=== PATIENT | female | born 1955 | race Caucasian/White ===

== ENCOUNTER 2017-01-30 10:23 | Emergency (ER) | payer BC ==
[2017-01-30] MEDS ORDERED: CLINDAMYCIN 150 MG CAP PO ONE (11:30)
--- NOTE | 2017-01-30 11:31 | Emergency Department Record ---
History of Present Illness - General Chief complaint: Lower Extremity Pain Stated complaint: L LEG POSS INFECTION Time Seen by Provider: 01/30/17 10:51 Source: Patient Mode of Arrival: Ambulatory Limitations: No limitations - History of Present Illness Initial comments: The patient is here due to developing R leg redness, itching and a rash for the last 4 days. The patient has a hx of having a complication from a previous R leg fracture and had a 2nd surgery last summer. She just went back to work 4 days ago and since has developed these issues. She denies any calf pain, thigh pain, fever, chills, or trauma. She also denies any new skin products or new medicines. MD Complaint: Extremity pain Onset/Timin -: Days(s) Location: Right, Lower Leg Improves with: Nothing Worsens with: Nothing Associated Symptoms: Other - Related Data Home Medications Medication Instructions Recorded Confirmed Last Taken Acetaminophen [Tylenol 500Mg Tab] 500 mg PO Q6H 01/30/17 01/30/17 01/30/17 Hydrocodone/Acetaminophen [[place] 1 each PO Q6H 01/30/17 01/30/17 01/30/17 5-325 Tablet] Lisinopril 10 mg PO DAILY 01/30/17 01/30/17 01/30/17 Naproxen Sodium [Aleve] 220 mg PO ASDIR 01/30/17 01/30/17 01/29/17 Propranolol HCl 20 mg PO DAILY 01/30/17 01/30/17 01/30/17 Sumatriptan Succinate [Imitrex] 25 mg PO ASDIR 01/30/17 01/30/17 Unknown Previous Rx's Medication Instructions Recorded Clindamycin HCl [Cleocin HCl] 300 mg PO QID #28 capsule 01/30/17 Triamcinolone Acet Cream [Kenalog 1 apply TP BID 7 Days #1 tube 01/30/17 Cream] Allergies Allergy/AdvReac Type Severity Reaction Status Date / Time No Known Drug Allergies Allergy Verified 01/30/17 10:40 Travel Screening - Travel/Exposure Within Last 30 Days Have you traveled within the last 30 days?: No - Travel/Exposure Within Last Year Have you traveled outside the [place] in the last year?: No - Additonal Travel Details Have you been exposed to anyone with a communicable illness?: No - Travel Symptoms Symptom Screening: None Review of Systems Constitutional: Denies: Chills, Fever Eyes: Denies: Eye discharge ENT: Denies: Congestion Respiratory: Denies: Cough, Dyspnea Past Medical History - SOCIAL HISTORY Smoking Status: Current every day smoker Alcohol Use: Occasional Drug Use: None - RESPIRATORY Hx Respiratory Disorders: No - CARDIOVASCULAR Hx Cardio Disorders: Yes Hx Hypertension: Yes - NEURO Hx Neuro Disorders: No - GI Hx GI Disorders: No - Hx Genitourinary Disorders: No - ENDOCRINE Hx Endocrine Disorders: No - MUSCULOSKELETAL Hx Musculoskeletal Disorders: Yes Comment:: scoliosis, L3 L5 buldged disk - PSYCH Hx Psych Problems: Yes Hx Depression: Yes (resolved) - HEMATOLOGY/ONCOLOGY Hx Hematology/Oncology Disorders: No Family Medical History Any Significant Family History?: No Physical Exam - General General Appearance: Alert, Oriented x3, Cooperative, No acute distress - Head Head exam: Atraumatic, Normocephalic, Normal inspection - Eye Eye exam: Normal appearance, PERRL - Extremities Extremities exam: Full ROM, Normal capillary refill, Tenderness (There is mild tenderness over the medial distal R lower leg with scattered papular erythematous lesions that are very pruritic. It appears to be a possible staph vs allergic skin reaction.). negative: Normal inspection, Calf tenderness, Joint swelling, Pedal edema Image of Full Body: 1 - Area of involvement of the rash. Course Vital Signs 01/30/17 10:27 Temperature 97.6 F Pulse Rate 70 Respiratory 16 Rate Blood Pressure 133/95 Pulse Ox 96 - Reevaluation(s) Reevaluation #1: I explained to the patient that it appears that she may be having an allergic skin reaction or possibly a skin infection. Due to the nature of the previous leg problems we will treat the patient with an oral abx and topical steroid cream. 01/30/17 11:36 Disposition Disposition: Discharge Clinical Impression: Dermatitis Disposition: Home, Self-Care Condition: (2) Stable Instructions: Dermatitis (ED) Additional Instructions: Please take the Clindamycin and Triamcinolone as directed and see Dr. Mcnair tomorrow as planned. Prescriptions: Clindamycin HCl [Cleocin HCl] 300 mg PO QID #28 capsule Triamcinolone Acet Cream [Kenalog Cream] 1 apply TP BID 7 Days #1 tube Forms: Patient Portal Access Time of Disposition: 11:40 Quality - Quality Measures Quality Measures: N/A - Blood Pressure Screening View Details: Yes Does Patient Have Any of the Following: No Blood Pressure Classification: Normal BP Reading Systolic Measurement: 110 Diastolic Measurement: 74 Screening for High Blood Pressure: < Normal BP, F/U Not Required > [G8783]
== END 2017-01-30 11:58 | disposition home or self-care (01) ==
LOC: ER 10:23
DX: L30.9 Dermatitis, unspecified (principal)
CPT/HCPCS: 99282

== ENCOUNTER 2017-02-11 11:59 | Emergency (ER) | payer BC ==
[2017-02-11] MEDS ORDERED: METHYLPREDNISOLONE PF 125MG/VIAL IM ONE (12:45)
[2017-02-11] MEDS ORDERED: DIPHENHYDRAMINE HCL 25 MG CAPSULE PO ONE (12:45)
--- NOTE | 2017-02-11 13:09 | Emergency Department Record ---
History of Present Illness - General Chief complaint: Rash Stated complaint: RASH Time Seen by Provider: 02/11/17 12:34 Source: Patient Mode of Arrival: Ambulatory Limitations: No limitations - History of Present Illness Initial comments: pt broke out in an itchy rash after finishing clindamycin. she denies any other new exposures MD complaint: Rash Onset/Timin -: Days(s) Location: Generalized, Head, Neck, Back, LUE, RUE Severity: Moderate Severity scale (1-10): 2 Consistency: Constant Improves with: None Associated symptoms: Itching - Related Data Previous Rx's Medication Instructions Recorded Clindamycin HCl [Cleocin HCl] 300 mg PO QID #28 capsule 01/30/17 Triamcinolone Acet Cream [Kenalog 1 apply TP BID 7 Days #1 tube 01/30/17 Cream] Methylprednisolone [Medrol Dose 4 mg PO ASDIR #1 tab.ds.pk 02/11/17 Pack] Allergies Allergy/AdvReac Type Severity Reaction Status Date / Time No Known Drug Allergies Allergy Verified 01/30/17 10:40 Travel Screening - Travel/Exposure Within Last 30 Days Have you traveled within the last 30 days?: No - Travel/Exposure Within Last Year Have you traveled outside the [place] in the last year?: No - Additonal Travel Details Have you been exposed to anyone with a communicable illness?: No - Travel Symptoms Symptom Screening: None Review of Systems Reviewed: No additional complaints except as noted below Constitutional: Reports: As per HPI. Denies: Chills, Fever, Malaise, Night sweats, Weakness, Weight change Eyes: Reports: As per HPI. Denies: Eye discharge, Eye pain, Photophobia, Vision change ENT: Reports: As per HPI. Denies: Congestion, Dental pain, Ear pain, Epistaxis , Hearing loss, Throat pain Respiratory: Reports: As per HPI. Denies: Cough, Dyspnea, Hemoptysis, Stridor, Wheezes Cardiovascular: Reports: As per HPI. Denies: Arrhythmia, Chest pain, Dyspnea on exertion, Edema, Murmurs, Orthopnea, Palpitations, Paroxysmal nocturnal dyspnea, Rheumatic Fever, Syncope Endocrine: Reports: As per HPI. Denies: Fatigue, Heat or cold intolerance, Polydipsia, Polyuria Gastrointestinal: Reports: As per HPI. Denies: Abdominal pain, Constipation, Diarrhea, Hematemesis, Hematochezia, Melena, Nausea, Vomiting Genitourinary: Reports: As per HPI. Denies: Abnormal menses, Discharge, Dyspareunia, Dysuria, Frequency, Hematuria, Incontinence, Retention, Urgency Musculoskeletal: Reports: As per HPI. Denies: Arthralgia, Back pain, Gout, Joint swelling, Myalgia, Neck pain Skin: Reports: As per HPI. Denies: Bruising, Change in color, Change in hair/ nails, Lesions, Pruritus, Rash Neurological: Reports: As per HPI. Denies: Abnormal gait, Confusion, Headache, Numbness, Paresthesias, Seizure, Tingling, Tremors, Vertigo, Weakness Psychiatric: Reports: As per HPI. Denies: Anxiety, Auditory hallucinations, Depression, Homicidal thoughts, Suicidal thoughts, Visual hallucinations Hematological/Lymphatic: Reports: As per HPI. Denies: Anemia, Blood Clots, Easy bleeding, Easy bruising, Swollen glands Past Medical History - SOCIAL HISTORY Smoking Status: Current every day smoker Alcohol Use: Occasional Drug Use: None - RESPIRATORY Hx Respiratory Disorders: No - CARDIOVASCULAR Hx Cardio Disorders: Yes Hx Hypertension: Yes - NEURO Hx Neuro Disorders: No - GI Hx GI Disorders: No - Hx Genitourinary Disorders: No - ENDOCRINE Hx Endocrine Disorders: No - MUSCULOSKELETAL Hx Musculoskeletal Disorders: Yes Comment:: scoliosis, L3 L5 buldged disk - PSYCH Hx Psych Problems: Yes Hx Depression: Yes (resolved) - HEMATOLOGY/ONCOLOGY Hx Hematology/Oncology Disorders: No Family Medical History Any Significant Family History?: Yes Physical Exam - General General Appearance: Alert, Oriented x3, Cooperative, No acute distress - Head Head exam: Normal inspection - Eye Eye exam: Normal appearance, PERRL, EOMI Pupils: Normal accommodation - ENT ENT exam: Normal exam, Mucous membranes moist, Normal external ear exam, Normal orophraynx Ear exam: Normal external inspection. negative: External canal tenderness Nasal Exam: Normal inspection. negative: Discharge, Sinus tenderness Mouth exam: Normal external inspection, Tongue normal Teeth exam: Normal inspection. negative: Dental caries Throat exam: Normal inspection. negative: Tonsillar erythema, Tonsillar exudate - Neck Neck exam: Normal inspection, Full ROM. negative: Tenderness - Respiratory Respiratory exam: Normal lung sounds bilaterally. negative: Respiratory distress - Cardiovascular Cardiovascular Exam: Regular rate, Normal rhythm, Normal heart sounds - GI/Abdominal GI/Abdominal exam: Soft, Normal bowel sounds. negative: Tenderness - Rectal Rectal exam: Deferred - exam: Deferred - Extremities Extremities exam: Normal inspection, Full ROM, Normal capillary refill. negative: Tenderness - Back Back exam: Reports: Normal inspection, Full ROM. Denies: Muscle spasm, Rash noted, Tenderness - Neurological Neurological exam: Alert, CN II-XII intact, Normal gait, Oriented X3 - Psychiatric Psychiatric exam: Normal affect, Normal mood - Skin Skin exam: Dry, Intact, Normal color, Rash, Warm Description of rash: Erythematous, Papular Course Vital Signs 02/11/17 12:04 Temperature 98.5 F Pulse Rate 91 H Respiratory 16 Rate Blood Pressure 169/93 Pulse Ox 98 Disposition Disposition: Discharge (all) Clinical Impression: Allergic dermatitis Disposition: Home Health Service Condition: (1) Good Instructions: Antibiotic Medication Allergy (ED), Dermatitis (ED) Additional Instructions: follow up with family doctor. return sooner if worse. benadryl every 6 hr. as needed. Prescriptions: Methylprednisolone [Medrol Dose Pack] 4 mg PO ASDIR #1 tab.ds.pk Forms: Patient Portal Access Quality - Quality Measures Quality Measures: N/A - Blood Pressure Screening Does Patient Have Any of the Following: No Blood Pressure Classification: Hypertensive Reading Systolic Measurement: 169 Diastolic Measurement: 93 Screening for High Blood Pressure: < First Hypertensive BP, F/U Documented > [ [id number]] First Hypertensive Follow-up Interventions: Follow-up with rescreen GT 1 day and LT 4 weeks.
== END 2017-02-11 13:30 | disposition home health service (06) ==
LOC: ER 11:59
DX: L27.0 Generalized skin eruption due to drugs and medicaments taken internally (principal); T36.8X5A Adverse effect of other systemic antibiotics, initial encounter
CPT/HCPCS: 96372; 99283; J2930